=== PATIENT | female | born 1995 | race Caucasian/White ===

== ENCOUNTER 2023-11-16 15:37 | Emergency (ER) | payer SELFPAY ==
[2023-11-16] MEDS ORDERED: Dexamethasone 4 MG TAB ONE (17:14)
[2023-11-16] MEDS ORDERED: Ketorolac Tromethamine 30 MG (1 mL) VIAL ONE (17:14)
[2023-11-16] MEDS ORDERED: Lidocaine 2% Viscous 10 mL, Alum & Magn 30 mL SSW SCH (17:30)
[2023-11-16 17:56] LABS: Influenza A by NAA Not Detected (NotDetected); Influenza B by NAA Not Detected (NotDetected); SARS-CoV-2 NAA Rapid Test Not Detected (NotDetected)
== END 2023-11-16 18:23 | disposition home or self-care (01) ==
LOC: ERS 15:37
DX: J02.0 Streptococcal pharyngitis (principal); R10.13 Epigastric pain
CPT/HCPCS: 71046; 87430; 96372; J1885; J8540